=== PATIENT | male | born 1960 | race Caucasian/White ===

== ENCOUNTER → 2018-06-17 | Outpatient (CLI) | payer BC ==
[2018-06-17 10:43] LABS: Basophils # (A) 0.1 k/uL (0-0.2); Basophils % (A) 1 %; Eosinophils # (A) 0.5 k/uL (0-0.7); Eosinophils % (A) 6 %; HCT 43.8 % (39.0-53.0); HGB 14.2 gm/dL (13.0-17.5); Lymphocytes # (A) 1.4 k/uL (1.0-4.8); Lymphocytes % (A) 19 %; MCH 29.3 pg (25.0-35.0); MCHC 32.3 g/dL (31.0-37.0); MCV 90.6 fL (80.0-100.0); Mean Platelet Volume 8.6; Monocytes # (A) 0.5 k/uL (0-1.0); Monocytes % (A) 6 %; Neutrophils # (A) 4.8 k/uL (1.3-7.7); Neutrophils % (A) 65 %; Platelet Count 202 k/uL (150-450); RBC 4.84 m/uL (4.30-5.90); RDW 14.4 % (11.5-15.5); WBC 7.3 k/uL (3.8-10.6)
[2018-06-17 10:44] LABS: Appearance,Urine Clear (Clear); Bilirubin,Urine Negative (Negative); Blood,Urine Negative (Negative); Color,Urine Yellow; Glucose,Urine (UA) Negative (Negative); Ketones,Urine Negative (Negative); Leukocyte Esterase,Urine Negative (Negative); Nitrite,Urine Negative (Negative); Protein,Urine Negative (Negative); Specific Gravity,Urine 1.016 (1.001-1.035); Urobilinogen,Urine <2.0 mg/dL (<2.0)
[2018-06-17 13:05] LABS: Erythrocyte Sedimentation Rate 8 mm/hr (0-15)
[2018-06-17 16:01] LABS: Albumin 4.4 g/dL (3.80-4.90); Albumin/Globulin Ratio 2.44 (1.60-3.17); Anion Gap 9.1 mmol/L (4.00-12.00); Calcium 8.9 mg/dL (8.7-10.3); Carbon Dioxide 24.9 mmol/L (21.6-31.8); Globulin 1.8 g/dL (1.6-3.3); LDL Cholesterol,Calculated 68.2 mg/dL (0.0-131.0); Potassium 4.2 mmol/L (3.5-5.5); Total Bilirubin 0.8 mg/dL (0.2-1.2); Total Protein 6.2 g/dL (6.2-8.2); VLDL Calculation 16.8 mg/dL (5.00-40.00)
[2018-06-18 13:01] LABS: Immunoglobulin M 32.1 mg/dL (40.0-280.0)
== END | disposition home or self-care (01) ==
LOC: LABWHC1 09:48
PROVIDERS: ATTEND Allergy & Immunology
DX: J32.9 Chronic sinusitis, unspecified (principal); E78.2 Mixed hyperlipidemia
CPT/HCPCS: 36415; 80053; 80061; 81003; 82784; 82785; 85025; 85652; 86003; 86162; 86317; 86684

== ENCOUNTER → 2018-07-24 | Outpatient (CLI) | payer BC ==
[2018-07-25 10:50] LABS: IgG Subclass 4 14.6 mg/dL (3.0-175.0)
[2018-07-25 11:32] LABS: Immunoglobulin M 34.6 mg/dL (40.0-280.0)
== END | disposition home or self-care (01) ==
LOC: LABWHC1 07:35
PROVIDERS: ATTEND Allergy & Immunology
DX: J32.9 Chronic sinusitis, unspecified (principal)
CPT/HCPCS: 36415; 82784; 82787

== ENCOUNTER → 2018-09-07 | Outpatient (CLI) | payer BC ==
[2018-09-07 18:18] LABS: Protein, Total 6.2 g/dL (6.2-8.2)
[2018-09-08 13:05] LABS: Albumin 3.74 g/dL (3.80-4.90); Gamma Globulin 0.86 g/dL (0.70-1.50)
== END | disposition home or self-care (01) ==
LOC: LABWHC1 07:58
PROVIDERS: ATTEND Allergy & Immunology
DX: D80.1 Nonfamilial hypogammaglobulinemia (principal)
CPT/HCPCS: 36415; 83883; 84165; 86334

== ENCOUNTER → 2018-11-19 | Outpatient (CLI) | payer BC | END | disposition home or self-care (01) | LOC: LABWHC1 07:38 | PROVIDERS: ATTEND Allergy & Immunology | DX: J32.9 Chronic sinusitis, unspecified (principal) | CPT/HCPCS: 36415; 86317 ==

== ENCOUNTER → 2019-09-30 | Outpatient (CLI) | payer OTHER ==
[2019-09-30 12:46] LABS: African American GFR (CKD) 75.7 (60.0-200.0); Anion Gap 12.8 mmol/L (4.00-12.00); Carbon Dioxide 22.2 mmol/L (21.6-31.8); Chol/HDL Ratio 3.18; LDL Cholesterol,Calculated 65.8 mg/dL (0.0-131.0); Non-African American GFR(CKD) 65.3 (60.0-200.0); Potassium 4.2 mmol/L (3.5-5.5); VLDL Calculation 21.2 mg/dL (5.00-40.00)
== END | disposition home or self-care (01) ==
LOC: LABWHC1 07:16
PROVIDERS: ATTEND Internal Medicine Cardiovascular Disease
DX: E78.2 Mixed hyperlipidemia (principal)
CPT/HCPCS: 36415; 80051; 80061; 82565; 84450; 84460; 84520

== ENCOUNTER → 2019-11-29 | Outpatient (CLI) | payer OTHER ==
--- NOTE | 2019-11-29 09:20 | US ---
EXAMINATION TYPE: US duplex aorta DATE OF EXAM: 11/29/2019 COMPARISON: NONE CLINICAL HISTORY: 59-year-old male Z13.6 screening for abdominal aortic aneurysm. Family hx AAA. No pain. TECHNIQUE: Multiple sonographic images of the abdominal aorta are obtained. FINDINGS: EXAM MEASUREMENTS: Abdominal Aorta: Proximal: 2.7 x 2.3 cm Mid: 2.3 x 2.7 cm Distal: 1.8 x 1.9 cm Bifurcation: Right= 1.0 x 1.1 cm Left= 1.2 x 1.2 cm Client Renewal Specialist notes: No AAA visualized at time of study. Limited visualization of proximal Aorta due t o overlying bowel gas. IMPRESSION: Some technical limitations. 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 No sherman AAA.
== END | disposition home or self-care (01) ==
LOC: RADUSWWP 08:00
PROVIDERS: ATTEND Family Medicine
DX: Z13.6 Encounter for screening for cardiovascular disorders (principal)
CPT/HCPCS: 93979

== ENCOUNTER 2019-12-06 07:36 | Day surgery (SDC) | payer OTHER ==
[2019-12-02 13:41] VITALS: BMI 28.8
[~2019-12-06 07:36] MED LIST: LACTATED RINGERS 1,000 ML IV SCH
[2019-12-06 08:12] VITALS: RESP 16; TEMP 97.6
[2019-12-06] MEDS ORDERED: LIDOCAINE 1% (10MG/ML) FOR IV START INTRADERMA ONE (08:23)
[2019-12-06] MEDS ORDERED: PROPOFOL 10 MG/ML 20 ML VIAL IV ONE (08:40)
--- NOTE | 2019-12-06 09:10 | P.PCN ---
Date of Procedure: 12/06/19 Description of Procedure: BRIEF HISTORY: Patient is a 59-year-old male who presented for outpatient colonoscopy for screening for malignant neoplasm of the colon. Last colonoscopy over 10 years ago. No family history of colon cancer. No change in bowel habits or blood per rectum. PROCEDURE PERFORMED: Colonoscopy with polypectomy. PREOPERATIVE DIAGNOSIS: Screening for malignant neoplasm colon, patient reports last colonoscopy over 10 years ago. ESTIMATED BLOOD LOSS: Minimal. IV sedation per Anesthesia. PROCEDURE: After informed consent was obtained, the patient, was brought into the endoscopy unit. IV sedation was administered by Anesthesia under continuous monitoring. Digital rectal examination was normal. Initially the Olympus CF-190 flexible video colonoscope was then inserted in the rectum, gradually advanced into the cecum without any difficulty. Careful examination was performed as the scope was gradually being withdrawn. Ileocecal valve and the appendiceal orifice were visualized and appeared normal. Prep was excellent. Mucosa of the cecum, ascending colon, transverse colon, descending colon, sigmoid colon, and rectum appeared normal, with multiple scattered diverticula throughout the colon. A diminutive 3 mm descending colon polyp was removed with cold forcep. Retroflexion was performed in the rectum and no lesions were seen. The patient tolerated the procedure well. IMPRESSION: Diminutive descending colon polyp removed with cold forcep polypectomy. Mild pandiverticulosis. RECOMMENDATIONS: Findings of this examination were discussed with the patient. Okay to resume diet. Okay to resume medication. Await pathology from polypectomy. Recommend repeat colonoscopy in 7 years pending pathology from polypectomy.
[2019-12-06 09:34] VITALS: BP 131/85; PULSE 56
== END 2019-12-06 10:04 | disposition home or self-care (01) ==
LOC: ORWHC2ENDO 07:36
PROVIDERS: ATTEND Internal Medicine
DX: Z12.11 Encounter for screening for malignant neoplasm of colon (principal); D12.4 Benign neoplasm of descending colon; K57.30 Diverticulosis of large intestine without perforation or abscess without bleeding; I10 Essential (primary) hypertension; E78.5 Hyperlipidemia, unspecified; I25.10 Atherosclerotic heart disease of native coronary artery without angina pectoris; Z95.5 Presence of coronary angioplasty implant and graft; K21.9 Gastro-esophageal reflux disease without esophagitis; Z98.890 Other specified postprocedural states; Z79.82 Long term (current) use of aspirin; Z79.51 Long term (current) use of inhaled steroids; Z79.899 Other long term (current) drug therapy
CPT/HCPCS: 88305; 45380; J2704

== ENCOUNTER → 2020-10-20 | Outpatient (CLI) | payer OTHER ==
[2020-10-20 18:58] LABS: Chol/HDL Ratio 3.29; LDL Cholesterol,Calculated 68.2 mg/dL (0.0-131.0); VLDL Calculation 27.8 mg/dL (5.00-40.00)
== END | disposition home or self-care (01) ==
LOC: LABWHC1 07:23
PROVIDERS: ATTEND Internal Medicine Cardiovascular Disease
DX: E78.2 Mixed hyperlipidemia (principal)
CPT/HCPCS: 36415; 80061; 84450; 84460

== ENCOUNTER → 2021-01-19 | Outpatient (CLI) | payer OTHER ==
[2021-01-19 12:09] LABS: ALT 160 U/L (10-49); AST 101 U/L (14-35); Chol/HDL Ratio 5.63 Ratio; LDL Cholesterol,Calculated 158.7 mg/dL (0.0-131.0)
== END | disposition home or self-care (01) ==
LOC: LABWHC1 07:40
PROVIDERS: ATTEND Internal Medicine Cardiovascular Disease
DX: E78.2 Mixed hyperlipidemia (principal)
CPT/HCPCS: 36415; 80061; 84450; 84460

== ENCOUNTER → 2021-08-23 | Outpatient (CLI) | payer OTHER ==
[2021-08-23 10:55] LABS: African American GFR (CKD) 67.8 (60.0-200.0); Albumin 4.2 g/dL (3.8-4.9); Albumin/Globulin Ratio 1.56 (1.60-3.17); Anion Gap 10.5 mmol/L (10.00-18.00); BUN/Creat Ratio 11.69 Ratio (12.00-20.00); Blood Urea Nitrogen 15.2 mg/dL (9.0-27.0); Calcium 9.1 mg/dL (8.7-10.3); Carbon Dioxide 23.5 mmol/L (20.0-27.5); Globulin 2.7 g/dL (1.6-3.3); Non-African American GFR(CKD) 58.5 (60.0-200.0); Potassium 4.8 mmol/L (3.5-5.5); Total Bilirubin 0.4 mg/dL (0.30-1.20); Total Protein 6.9 g/dL (6.2-8.2)
[2021-08-23 12:01] LABS: Basophils # (A) 0.09 X 10*3/uL (0.00-0.10); Basophils % (A) 1.5 %; Eosinophils # (A) 0.37 X 10*3/uL (0.04-0.35); Eosinophils % (A) 6.3 %; HCT 42.8 % (39.6-50.0); HGB 13.3 g/dL (13.0-17.0); Immature Grans, Automated 0.3 %; Lymphocytes # (A) 1.49 X 10*3/uL (0.90-5.00); Lymphocytes % (A) 25.5 %; MCHC 31.1 g/dL (32.0-37.0); Mean Platelet Volume 11.5 fL (9.5-12.2); Monocytes # (A) 0.62 X 10*3/uL (0.20-1.00); Monocytes % (A) 10.6 %; NRBC Per 100 WBC 0 /100 WBCS (0.0-0.0); Neutrophils # (A) 3.25 X 10*3/uL (1.80-7.70); Neutrophils % (A) 55.8 %; Platelet Count 195 X 10*3/uL (140-440); RBC 4.92 X 10*6/uL (4.40-5.60); RDW 15.3 % (11.5-14.5); WBC 5.84 X 10*3/uL (4.50-10.00)
== END | disposition home or self-care (01) ==
LOC: LABWHC1 07:21
PROVIDERS: ATTEND Internal Medicine Gastroenterology
DX: R74.8 Abnormal levels of other serum enzymes (principal)
CPT/HCPCS: 36415; 80053; 85025